=== PATIENT | female | born 1985 | race Caucasian/White ===

== ENCOUNTER 2021-02-06 09:59 | Outpatient (CLI) | payer BC ==
[~2021-02-06] VITALS: Ht 157.5 cm; Wt 75.9 kg
[~2021-02-06 09:59] MED LIST: IBUP-1223 PO; L.AC1CAP6 PO; OMEG1CAP25 PO; OXYC1TAB14 PO; PREN1TAB27 PO
[2021-02-06 11:05] LABS: MICROSCOPIC INDICATED
[2021-02-06 11:13] VITALS: BP 114/75
[2021-02-06] MEDS ORDERED: CETI10CA PO (11:35)
[2021-02-06] MEDS ORDERED: HYDR28.423 TP (11:40)
== END 2021-02-06 11:45 | disposition home or self-care (01) ==
LOC: LDOP 09:59
PROVIDERS: ATTEND Obstetrics & Gynecology
DX: O30.043 Twin pregnancy, dichorionic/diamniotic, third trimester (principal); O26.86 Pruritic urticarial papules and plaques of pregnancy (PUPPP); O42.913 Preterm premature rupture of membranes, unspecified as to length of time between rupture and onset of labor, third trimester; Z3A.36 36 weeks gestation of pregnancy
CPT/HCPCS: 59025; 81001; 84112; 87086